=== PATIENT | female | born 1970 ===

== ENCOUNTER 2021-10-30 14:16 | Emergency (ER) | payer SELFPAY ==
[~2021-10-30] VITALS: Ht 172.7 cm; Wt 72.6 kg
[2021-10-30 14:38] VITALS: BP 182/80
[2021-10-30] MEDS ORDERED: amLODIPine BESYLATE 5 MG TAB ONE (14:59)
[2021-10-30] MEDS ORDERED: amLODIPine BESYLATE 5 MG TAB PO ONE (15:15)
== END 2021-10-30 15:16 | disposition left against medical advice (07) ==
LOC: ER 14:16
DX: M54.2 Cervicalgia (principal); M54.9 Dorsalgia, unspecified; M25.512 Pain in left shoulder; M25.511 Pain in right shoulder; Z53.21 Procedure and treatment not carried out due to patient leaving prior to being seen by health care provider; V49.69XA Unspecified car occupant injured in collision with other motor vehicles in traffic accident, initial encounter; Y93.89 Activity, other specified; Y92.410 Unspecified street and highway as the place of occurrence of the external cause; Y99.8 Other external cause status